=== PATIENT | female | born 1965 | race Caucasian/White ===

== ENCOUNTER 2022-05-26 19:36 | Inpatient (IN) | payer MEDICARE ==
[~2022-05-26 19:36] MED LIST: Iopamidol-370 76% 500 ML 1 ML ONE
[2022-05-26] MEDS ORDERED: Morphine 4 MG/ML VIAL ONE (20:01)
[2022-05-26] MEDS ORDERED: Pantoprazole 40 MG VIAL ONE (20:01)
[2022-05-26 20:37] LABS: #Eosinphils 0.1 thou/uL (0.0-0.7); #Lymphocytes 1.3 thou/uL (1.20-3.40); #Monocytes 0.5 thou/uL (0.11-0.59); #Neutrophils 8.1 thou/uL (1.40-6.50); %Eosinophils 0.7 % (0.0-10.0); %Lymphocytes 13.4 % (21.0-51.0); %Monocytes 5.1 % (0.0-10.0); %Neutrophils 80.8 % (42.0-75.0); Mean Corpuscular HGB CONC 33.7 g/dL (32.0-36.0); Mean Corpuscular Hemoglobin 34.6 pg (27.0-31.0); Mean Platelet Volume 7.3 fL (7.4-10.4); Platelet Count 241 10x3/uL (130-400); RBC Distribution Width 11.6 % (11.5-14.5); Red Blood Cell (RBC) Count 4.62 mill/uL (4.20-5.40)
[2022-05-26 20:51] LABS: ALT (SGPT) 31 U/L (8-55); AST (SGOT) 88 U/L (5-34); Albumin 3.7 g/dL (3.5-5.0); Alkaline Phosphatase 167 U/L (40-110); Anion Gap 15 mmol/L (10-20); BUN (Urea Nitrogen) 15 mg/dL (9.8-20.1); Bilirubin, Total 0.7 mg/dL (0.2-1.2); Calc. Creatinine Clearance 0 mL/min (70-130); Calcium 9.1 mg/dL (7.8-10.44); Carbon Dioxide 27 mmol/L (22-29); Chloride 100 mmol/L (98-107); Estimated GFR 94; Globulin 3.1 g/dL (2.4-3.5); Glucose 97 mg/dL (70-105); Potassium 4.6 mmol/L (3.5-5.1); Protein, Total 6.8 g/dL (6.0-8.3); Sodium 137 mmol/L (136-145)
[2022-05-26 21:04] LABS: Lipase 2475 U/L (8-78)
[2022-05-26] MEDS ORDERED: Ondansetron PF 4 MG/2 ML Vial ONE (22:19)
[2022-05-26] MEDS ORDERED: HYDROmorphone 0.5 MG/0.5 ML SYRINGE ONE (22:20)
[2022-05-26 23:03] LABS: Bilirubin Negative (Negative); Blood, Urine Negative (Negative); Clarity Clear (Clear); Glucose, Urine (Dipstick) Normal (Negative); Ketone, Urine Negative (Negative); Leukocyte Negative Leu/uL (Negative); Nitrite Negative (Negative); Protein, Urine (Dipstick) 10 mg/dL (Neg-Trace); Urobilinogen Normal mg/dL (Less than 2)
[2022-05-26 23:04] LABS: Specific Gravity, Urine Greater than 1.065 (1.002-1.036)
[2022-05-27 00:19] LABS: Hemoglobin A1c 4.6 % (4.0-6.0)
[2022-05-27 00:27] VITALS: BMI 30.3
[2022-05-27] MEDS: Lactated Ringer's 1,000 ML IV SCH ×3 (01:01→16:51)
[2022-05-27] MEDS: Morphine 4 MG/ML VIAL SLOW IVP PRN ×6 (01:06→22:41)
[2022-05-27] MEDS ORDERED: Morphine 2 MG/ML VIAL SLOW IVP SCH (05:45)
[2022-05-27 06:23] LABS: #Lymphocytes 1.1 thou/uL (1.20-3.40); #Monocytes 0.4 thou/uL (0.11-0.59); #Neutrophils 5.8 thou/uL (1.40-6.50); %Basophils 0.2 % (0.0-1.0); %Eosinophils 0.5 % (0.0-10.0); %Monocytes 5.2 % (0.0-10.0); %Neutrophils 79.1 % (42.0-75.0); Hemoglobin 14.3 g/dL (12.0-16.0); Mean Corpuscular HGB CONC 32.8 g/dL (32.0-36.0); Mean Corpuscular Hemoglobin 34.3 pg (27.0-31.0); Mean Platelet Volume 7.1 fL (7.4-10.4); Platelet Count 194 10x3/uL (130-400); RBC Distribution Width 11.7 % (11.5-14.5); Red Blood Cell (RBC) Count 4.18 mill/uL (4.20-5.40); White Blood Cell (WBC) Count 7.3 10x3/uL (4.8-10.8)
[2022-05-27] MEDS: Ondansetron PF 4 MG/2 ML Vial IVP PRN ×2 (06:37→13:03)
[2022-05-27 06:42] LABS: ALT (SGPT) 22 U/L (8-55); AST (SGOT) 59 U/L (5-34); Albumin 3.2 g/dL (3.5-5.0); Alkaline Phosphatase 135 U/L (40-110); Anion Gap 9 mmol/L (10-20); BUN (Urea Nitrogen) 14 mg/dL (9.8-20.1); Bilirubin, Total 1.1 mg/dL (0.2-1.2); Calc. Creatinine Clearance 119 mL/min (70-130); Calcium 8.2 mg/dL (7.8-10.44); Carbon Dioxide 30 mmol/L (22-29); Cardiac Risk 2.4 (Less than 4.5); Chloride 103 mmol/L (98-107); Cholesterol 220 mg/dl (< 200 Desired); Estimated GFR 102; Globulin 2.5 g/dL (2.4-3.5); Glucose 99 mg/dL (70-105); HDL Cholesterol 93 mg/dL (>60 Neg Risk); LDL Cholesterol, Calculated 115 mg/dL; Potassium 4.4 mmol/L (3.5-5.1); Protein, Total 5.7 g/dL (6.0-8.3); Sodium 138 mmol/L (136-145); Triglycerides 58 mg/dL (Less than 150)
[2022-05-27] MEDS ORDERED: Non-Formulary Item 1 EACH (Omeprazole [Omeprazole] 20 MG Capsule.Dr) PO SCH (09:00)
[2022-05-27] MEDS: Bupropion 150 MG XL TAB PO SCH (09:05)
[2022-05-27] MEDS: Thiamine 100 MG TAB PO SCH (09:06)
[2022-05-27] MEDS: Multivitamin W/ Minerals 1 TAB PO SCH (09:06)
[2022-05-27] MEDS: Folic Acid 1 MG TAB PO SCH (09:06)
[2022-05-27] MEDS: Morphine 2 MG/ML VIAL SLOW IVP PRN ×3 (10:23→20:22)
[2022-05-27] MEDS ORDERED: Polyethylene Glycol 3350 17 GM Packet PO SCH (16:15)
[2022-05-27] MEDS: Zolpidem Tartrate 5 MG TAB PO SCH (20:26)
[2022-05-27] MEDS ORDERED: Non-Formulary Item 1 EACH (Zolpidem Tartrate [Zolpidem Tartrate] 10 MG Tablet) PO SCH (21:00)
[2022-05-28] MEDS: Lactated Ringer's 1,000 ML IV SCH ×4 (02:02→20:20)
[2022-05-28] MEDS: Morphine 4 MG/ML VIAL SLOW IVP PRN ×4 (03:59→23:13)
[2022-05-28] MEDS: Morphine 2 MG/ML VIAL SLOW IVP PRN (06:46)
[2022-05-28 07:10] LABS: ALT (SGPT) 16 U/L (8-55); AST (SGOT) 43 U/L (5-34); Albumin 2.8 g/dL (3.5-5.0); Alkaline Phosphatase 114 U/L (40-110); Anion Gap 12 mmol/L (10-20); BUN (Urea Nitrogen) 8 mg/dL (9.8-20.1); Bilirubin, Total 1.1 mg/dL (0.2-1.2); Calc. Creatinine Clearance 130 mL/min (70-130); Calcium 8.4 mg/dL (7.8-10.44); Carbon Dioxide 27 mmol/L (22-29); Chloride 101 mmol/L (98-107); Estimated GFR 104; Globulin 2.4 g/dL (2.4-3.5); Glucose 77 mg/dL (70-105); Potassium 3.8 mmol/L (3.5-5.1); Protein, Total 5.2 g/dL (6.0-8.3); Sodium 136 mmol/L (136-145)
[2022-05-28 07:19] LABS: #Eosinphils 0.1 thou/uL (0.0-0.7); #Lymphocytes 1.4 thou/uL (1.20-3.40); #Monocytes 0.4 thou/uL (0.11-0.59); #Neutrophils 6.3 thou/uL (1.40-6.50); %Basophils 0.4 % (0.0-1.0); %Eosinophils 0.8 % (0.0-10.0); %Lymphocytes 16.8 % (21.0-51.0); %Monocytes 5.1 % (0.0-10.0); %Neutrophils 76.9 % (42.0-75.0); Hemoglobin 12.2 g/dL (12.0-16.0); Mean Corpuscular HGB CONC 33.8 g/dL (32.0-36.0); Mean Corpuscular Hemoglobin 35.3 pg (27.0-31.0); Mean Platelet Volume 7.4 fL (7.4-10.4); Platelet Count 145 10x3/uL (130-400); RBC Distribution Width 11.5 % (11.5-14.5); Red Blood Cell (RBC) Count 3.45 mill/uL (4.20-5.40); White Blood Cell (WBC) Count 8.2 10x3/uL (4.8-10.8)
[2022-05-28] MEDS: Thiamine 100 MG TAB PO SCH (08:45)
[2022-05-28] MEDS: Multivitamin W/ Minerals 1 TAB PO SCH (08:45)
[2022-05-28] MEDS: Bupropion 150 MG XL TAB PO SCH (08:45)
[2022-05-28] MEDS: Folic Acid 1 MG TAB PO SCH (08:45)
[2022-05-28] MEDS: Polyethylene Glycol 3350 17 GM Packet PO SCH (08:45)
[2022-05-28] MEDS: HYDROcodone/Acetaminophen 10/325 mg Tablet PO SCH ×2 (11:42→17:52)
[2022-05-28] MEDS: Zolpidem Tartrate 5 MG TAB PO SCH (23:13)
[2022-05-29] MEDS: HYDROcodone/Acetaminophen 10/325 mg Tablet PO SCH ×5 (00:49→23:54)
[2022-05-29] MEDS: Morphine 2 MG/ML VIAL SLOW IVP PRN (03:21)
[2022-05-29] MEDS: Lactated Ringer's 1,000 ML IV SCH (06:15)
[2022-05-29 07:52] LABS: #Eosinphils 0.1 thou/uL (0.0-0.7); #Lymphocytes 1.4 thou/uL (1.20-3.40); #Monocytes 0.4 thou/uL (0.11-0.59); %Basophils 0.3 % (0.0-1.0); %Eosinophils 1.9 % (0.0-10.0); %Lymphocytes 20.1 % (21.0-51.0); %Monocytes 5.1 % (0.0-10.0); %Neutrophils 72.7 % (42.0-75.0); Hemoglobin 11.4 g/dL (12.0-16.0); Mean Corpuscular HGB CONC 33.1 g/dL (32.0-36.0); Mean Corpuscular Hemoglobin 34.7 pg (27.0-31.0); Mean Platelet Volume 7.3 fL (7.4-10.4); Platelet Count 163 10x3/uL (130-400); RBC Distribution Width 11.2 % (11.5-14.5); Red Blood Cell (RBC) Count 3.28 mill/uL (4.20-5.40); White Blood Cell (WBC) Count 6.9 10x3/uL (4.8-10.8)
[2022-05-29 08:04] LABS: ALT (SGPT) 14 U/L (8-55); AST (SGOT) 33 U/L (5-34); Albumin 3.1 g/dL (3.5-5.0); Alkaline Phosphatase 119 U/L (40-110); Anion Gap 12 mmol/L (10-20); BUN (Urea Nitrogen) 5 mg/dL (9.8-20.1); Calc. Creatinine Clearance 134 mL/min (70-130); Calcium 8.5 mg/dL (7.8-10.44); Carbon Dioxide 27 mmol/L (22-29); Chloride 101 mmol/L (98-107); Estimated GFR 105; Globulin 2.7 g/dL (2.4-3.5); Glucose 66 mg/dL (70-105); Potassium 3.6 mmol/L (3.5-5.1); Protein, Total 5.8 g/dL (6.0-8.3); Sodium 136 mmol/L (136-145)
[2022-05-29] MEDS: Multivitamin W/ Minerals 1 TAB PO SCH (08:25)
[2022-05-29] MEDS: Bupropion 150 MG XL TAB PO SCH (08:25)
[2022-05-29] MEDS: Thiamine 100 MG TAB PO SCH (08:26)
[2022-05-29] MEDS: Folic Acid 1 MG TAB PO SCH (08:26)
[2022-05-29] MEDS: Polyethylene Glycol 3350 17 GM Packet PO SCH (08:29)
[2022-05-29] MEDS: Morphine 4 MG/ML VIAL SLOW IVP PRN ×3 (08:30→20:36)
[2022-05-29] MEDS: Simethicone Chewable 80 MG TAB PO PRN (13:03)
[2022-05-29] MEDS: Gabapentin 300 MG CAP PO SCH (20:34)
[2022-05-29] MEDS: Zolpidem Tartrate 5 MG TAB PO SCH (20:35)
[2022-05-30] MEDS: HYDROcodone/Acetaminophen 10/325 mg Tablet PO SCH ×4 (05:51→23:49)
[2022-05-30 06:32] LABS: #Eosinphils 0.1 thou/uL (0.0-0.7); #Lymphocytes 1.4 thou/uL (1.20-3.40); #Monocytes 0.3 thou/uL (0.11-0.59); #Neutrophils 3.9 thou/uL (1.40-6.50); %Basophils 0.7 % (0.0-1.0); %Eosinophils 1.9 % (0.0-10.0); %Lymphocytes 24.2 % (21.0-51.0); %Monocytes 5.8 % (0.0-10.0); %Neutrophils 67.4 % (42.0-75.0); Hemoglobin 11.3 g/dL (12.0-16.0); Mean Corpuscular HGB CONC 32.6 g/dL (32.0-36.0); Mean Corpuscular Hemoglobin 34.4 pg (27.0-31.0); Mean Platelet Volume 7.3 fL (7.4-10.4); Platelet Count 203 10x3/uL (130-400); RBC Distribution Width 11.3 % (11.5-14.5); Red Blood Cell (RBC) Count 3.28 mill/uL (4.20-5.40); White Blood Cell (WBC) Count 5.7 10x3/uL (4.8-10.8)
[2022-05-30 06:51] LABS: ALT (SGPT) 12 U/L (8-55); AST (SGOT) 31 U/L (5-34); Albumin 3.2 g/dL (3.5-5.0); Alkaline Phosphatase 121 U/L (40-110); Anion Gap 16 mmol/L (10-20); BUN (Urea Nitrogen) Less than 4 mg/dL (9.8-20.1); Bilirubin, Total 0.8 mg/dL (0.2-1.2); Calc. Creatinine Clearance 128 mL/min (70-130); Calcium 8.8 mg/dL (7.8-10.44); Carbon Dioxide 24 mmol/L (22-29); Chloride 101 mmol/L (98-107); Estimated GFR 104; Globulin 2.9 g/dL (2.4-3.5); Glucose 69 mg/dL (70-105); Potassium 3.6 mmol/L (3.5-5.1); Protein, Total 6.1 g/dL (6.0-8.3); Sodium 137 mmol/L (136-145)
[2022-05-30] MEDS: Thiamine 100 MG TAB PO SCH (08:22)
[2022-05-30] MEDS: Bupropion 150 MG XL TAB PO SCH (08:22)
[2022-05-30] MEDS: Polyethylene Glycol 3350 17 GM Packet PO SCH (08:22)
[2022-05-30] MEDS: Folic Acid 1 MG TAB PO SCH (08:22)
[2022-05-30] MEDS: Morphine 4 MG/ML VIAL SLOW IVP PRN ×2 (08:22→16:24)
[2022-05-30] MEDS: Multivitamin W/ Minerals 1 TAB PO SCH (08:22)
[2022-05-30] MEDS: Simethicone Chewable 80 MG TAB PO PRN ×2 (11:31→20:26)
[2022-05-30] MEDS: Zolpidem Tartrate 5 MG TAB PO SCH (20:17)
[2022-05-30] MEDS: Gabapentin 300 MG CAP PO SCH (20:17)
[2022-05-30] MEDS: Ondansetron PF 4 MG/2 ML Vial IVP PRN (20:18)
[2022-05-31] MEDS: HYDROcodone/Acetaminophen 10/325 mg Tablet PO SCH (05:43)
[2022-05-31 07:38] LABS: ALT (SGPT) 11 U/L (8-55); AST (SGOT) 30 U/L (5-34); Albumin 3.1 g/dL (3.5-5.0); Alkaline Phosphatase 145 U/L (40-110); Anion Gap 15 mmol/L (10-20); BUN (Urea Nitrogen) Less than 4 mg/dL (9.8-20.1); Bilirubin, Total 0.7 mg/dL (0.2-1.2); Calc. Creatinine Clearance 130 mL/min (70-130); Calcium 9.3 mg/dL (7.8-10.44); Carbon Dioxide 28 mmol/L (22-29); Chloride 101 mmol/L (98-107); Estimated GFR 104; Globulin 2.9 g/dL (2.4-3.5); Glucose 92 mg/dL (70-105); Potassium 3.1 mmol/L (3.5-5.1); Sodium 141 mmol/L (136-145)
[2022-05-31 07:42] LABS: #Eosinphils 0.1 thou/uL (0.0-0.7); #Lymphocytes 1.2 thou/uL (1.20-3.40); #Monocytes 0.5 thou/uL (0.11-0.59); #Neutrophils 2.8 thou/uL (1.40-6.50); %Basophils 0.5 % (0.0-1.0); %Eosinophils 2.6 % (0.0-10.0); %Lymphocytes 26.8 % (21.0-51.0); %Monocytes 9.9 % (0.0-10.0); %Neutrophils 60.2 % (42.0-75.0); Hemoglobin 11.4 g/dL (12.0-16.0); Mean Corpuscular HGB CONC 32.7 g/dL (32.0-36.0); Mean Corpuscular Hemoglobin 34.4 pg (27.0-31.0); Mean Platelet Volume 7.3 fL (7.4-10.4); Platelet Count 237 10x3/uL (130-400); RBC Distribution Width 11.5 % (11.5-14.5); White Blood Cell (WBC) Count 4.6 10x3/uL (4.8-10.8)
[2022-05-31] MEDS: Simethicone Chewable 80 MG TAB PO PRN (08:03)
[2022-05-31] MEDS: Folic Acid 1 MG TAB PO SCH (08:03)
[2022-05-31] MEDS: Bupropion 150 MG XL TAB PO SCH (08:03)
[2022-05-31] MEDS: Thiamine 100 MG TAB PO SCH (08:03)
[2022-05-31] MEDS: Polyethylene Glycol 3350 17 GM Packet PO SCH (08:04)
[2022-05-31] MEDS: Multivitamin W/ Minerals 1 TAB PO SCH (08:04)
[2022-05-31] MEDS ORDERED: Losartan 25 MG TAB PO SCH (10:00)
[2022-05-31] MEDS ORDERED: Potassium Chloride 20 MEQ TAB PO SCH (10:15)
[2022-05-31] MEDS ORDERED: Ketorolac Tromethamine 30 MG/ML VIAL IVP SCH (10:15)
[2022-05-31] MEDS: Losartan 25 MG TAB PO SCH (11:22)
[2022-05-31] MEDS: HYDROcodone/Acetaminophen 10/325 mg Tablet PO PRN ×2 (12:32→20:16)
[2022-05-31] MEDS: Gabapentin 300 MG CAP PO SCH (20:15)
[2022-05-31] MEDS: Zolpidem Tartrate 5 MG TAB PO SCH (20:16)
[2022-06-01] MEDS: HYDROcodone/Acetaminophen 10/325 mg Tablet PO PRN (03:44)
[2022-06-01 06:44] LABS: #Eosinphils 0.1 thou/uL (0.0-0.7); #Lymphocytes 1.4 thou/uL (1.20-3.40); #Monocytes 0.4 thou/uL (0.11-0.59); #Neutrophils 2.9 thou/uL (1.40-6.50); %Basophils 0.4 % (0.0-1.0); %Eosinophils 2.4 % (0.0-10.0); %Lymphocytes 28.9 % (21.0-51.0); %Monocytes 8.7 % (0.0-10.0); %Neutrophils 59.6 % (42.0-75.0); Hemoglobin 11.7 g/dL (12.0-16.0); Mean Corpuscular HGB CONC 33.1 g/dL (32.0-36.0); Mean Corpuscular Hemoglobin 34.7 pg (27.0-31.0); Platelet Count 282 10x3/uL (130-400); RBC Distribution Width 11.4 % (11.5-14.5); Red Blood Cell (RBC) Count 3.37 mill/uL (4.20-5.40); White Blood Cell (WBC) Count 4.8 10x3/uL (4.8-10.8)
[2022-06-01 07:07] LABS: ALT (SGPT) 9 U/L (8-55); AST (SGOT) 24 U/L (5-34); Albumin 3.3 g/dL (3.5-5.0); Alkaline Phosphatase 141 U/L (40-110); Anion Gap 12 mmol/L (10-20); BUN (Urea Nitrogen) Less than 4 mg/dL (9.8-20.1); Bilirubin, Total 0.6 mg/dL (0.2-1.2); Calc. Creatinine Clearance 122 mL/min (70-130); Calcium 9.2 mg/dL (7.8-10.44); Carbon Dioxide 28 mmol/L (22-29); Chloride 104 mmol/L (98-107); Estimated GFR 103; Globulin 2.9 g/dL (2.4-3.5); Glucose 91 mg/dL (70-105); Protein, Total 6.2 g/dL (6.0-8.3); Sodium 140 mmol/L (136-145)
[2022-06-01] MEDS ORDERED: Ibuprofen 600 MG TAB PO PRN (08:24)
[2022-06-01] MEDS: Polyethylene Glycol 3350 17 GM Packet PO SCH (09:10)
[2022-06-01] MEDS: Losartan 25 MG TAB PO SCH (09:10)
[2022-06-01] MEDS: Folic Acid 1 MG TAB PO SCH (09:11)
[2022-06-01] MEDS: Multivitamin W/ Minerals 1 TAB PO SCH (09:11)
[2022-06-01] MEDS: Thiamine 100 MG TAB PO SCH (09:11)
[2022-06-01] MEDS: Bupropion 150 MG XL TAB PO SCH (09:46)
[2022-06-01 10:46] VITALS: BP 154/91; TEMP 97.7
[2022-06-01] MEDS ORDERED: Acetaminophen 500 MG TAB PO SCH (14:00)
== END 2022-06-01 12:55 | disposition home or self-care (01) | DRG 440 ==
LOC: ERS 19:36 → T4-A 22:21
PROVIDERS: ADMIT Family Medicine; ATTEND Family Medicine
DX: K85.90 Acute pancreatitis without necrosis or infection, unspecified (principal); F41.9 Anxiety disorder, unspecified; F32.A Depression, unspecified; I10 Essential (primary) hypertension; F43.10 Post-traumatic stress disorder, unspecified; F10.10 Alcohol abuse, uncomplicated; K76.0 Fatty (change of) liver, not elsewhere classified; G47.00 Insomnia, unspecified; F41.0 Panic disorder [episodic paroxysmal anxiety]; G25.81 Restless legs syndrome; E87.6 Hypokalemia; Z88.2 Allergy status to sulfonamides; Z79.899 Other long term (current) drug therapy; Z90.710 Acquired absence of both cervix and uterus
CPT/HCPCS: 36415; 74177; 76705; 80053; 80061; 81003; 83036; 83690; 84439; 84443; 84484; 85025; 93005; 96361; 96374; 96375; C9113; J1170; J1885; J2270; J2272; J2405; J7120; Q9967; U0003; U0005

== ENCOUNTER 2023-03-18 17:05 | Inpatient (IN) | payer MEDICARE ==
[~2023-03-18 17:05] MED LIST changes: +Iopamidol 370 76% 100 ML VIAL ONE; -Iopamidol-370 76% 500 ML 1 ML ONE
[2023-03-18] MEDS ORDERED: Thiamine HCl 200 MG/2 ML VIAL ONE (18:04)
[2023-03-18] MEDS ORDERED: Ondansetron PF 4 MG/2 ML Vial ONE (18:04)
[2023-03-18] MEDS ORDERED: Morphine 4 MG/ML VIAL ONE (18:04)
[2023-03-18] MEDS ORDERED: Pantoprazole 40 MG VIAL ONE (18:11)
[2023-03-18 18:57] LABS: #Basophils 0.1 thou/uL (0.0-0.2); #Eosinphils 0.1 thou/uL (0.0-0.7); #Neutrophils 4.1 thou/uL (1.40-6.50); %Basophils 1.4 % (0.0-1.0); %Eosinophils 1.5 % (0.0-10.0); %Lymphocytes 24.5 % (21.0-51.0); %Monocytes 13.3 % (0.0-10.0); %Neutrophils 56.3 % (42.0-75.0); Hematocrit 35.6 % (36.0-47.0); Hemoglobin 12.1 g/dL (12.0-16.0); Mean Corpuscular Hemoglobin 34.8 pg (27.0-31.0); Mean Corpuscular Volume 102.3 fl (78.0-98.0); Mean Platelet Volume 9.9 fL (7.4-10.4); Platelet Count 222 10x3/uL (130-400); RBC Distribution Width 12.5 % (11.5-14.5); Red Blood Cell (RBC) Count 3.48 mill/uL (4.20-5.40); White Blood Cell (WBC) Count 7.2 10x3/uL (4.8-10.8)
[2023-03-18 19:25] LABS: Troponin I Less than 0.010 ng/mL (< 0.028)
[2023-03-18 19:29] LABS: ALT (SGPT) 43 U/L (8-55); AST (SGOT) 81 U/L (5-34); Albumin 3.6 g/dL (3.5-5.0); Alkaline Phosphatase 207 U/L (40-110); Anion Gap 18 mmol/L (10-20); BUN (Urea Nitrogen) 10 mg/dL (9.8-20.1); CK (CPK) 48 U/L (29-168); Calc. Creatinine Clearance 0 mL/min (70-130); Calcium 9.7 mg/dL (7.8-10.44); Carbon Dioxide 27 mmol/L (22-29); Chloride 95 mmol/L (98-107); Estimated GFR 89; Globulin 2.8 g/dL (2.4-3.5); Glucose 107 mg/dL (70-105); Lipase 23 U/L (8-78); Potassium 4.8 mmol/L (3.5-5.1); Protein, Total 6.4 g/dL (6.0-8.3); Sodium 135 mmol/L (136-145)
[2023-03-18 21:12] LABS: Acetaminophen Less than 10 mcg/mL (10.0-30.0); Alcohol Less than 10.0 mg/dL (Less than 10); Salicylate Less than 8.0 mg/dL (15.0-30.0)
[2023-03-18] MEDS ORDERED: Ondansetron PF 4 MG/2 ML Vial IVP PRN ×2 (21:30→23:33)
[2023-03-18] MEDS ORDERED: Ondansetron ODT 4 MG TAB SL PRN (21:30)
[2023-03-18] MEDS ORDERED: Acetaminophen 325 MG TAB PO PRN (23:33)
[2023-03-18] MEDS ORDERED: Ondansetron ODT 4 MG TAB PO PRN (23:33)
[2023-03-18] MEDS ORDERED: Acetaminophen 650 MG Suppository PR PRN (23:33)
[2023-03-18] MEDS ORDERED: Lorazepam 2 MG/ML VIAL IM PRN (23:34)
[2023-03-18] MEDS ORDERED: Lorazepam 1 MG TAB PO PRN (23:34)
[2023-03-18] MEDS ORDERED: Electrolyte Replacement Protocol 1 EACH FS SCH (23:45)
[2023-03-18] MEDS ORDERED: Multivit, Therapeutic 1 TAB PO SCH (23:59)
[2023-03-18] MEDS ORDERED: Folic Acid 1 MG TAB PO SCH (23:59)
[2023-03-19] MEDS: Morphine 4 MG/ML VIAL SLOW IVP PRN ×5 (00:04→22:43)
[2023-03-19 00:29] VITALS: BMI 35.2
[2023-03-19 06:07] LABS: #Eosinphils 0.1 thou/uL (0.0-0.7); #Monocytes 0.6 thou/uL (0.11-0.59); #Neutrophils 2.4 thou/uL (1.40-6.50); %Basophils 0.9 % (0.0-1.0); %Eosinophils 2.8 % (0.0-10.0); %Lymphocytes 29.1 % (21.0-51.0); %Monocytes 12.8 % (0.0-10.0); %Neutrophils 49.9 % (42.0-75.0); Hematocrit 30.1 % (36.0-47.0); Hemoglobin 9.9 g/dL (12.0-16.0); Mean Corpuscular HGB CONC 32.9 g/dL (32.0-36.0); Mean Corpuscular Hemoglobin 35.1 pg (27.0-31.0); Mean Platelet Volume 9.3 fL (7.4-10.4); Platelet Count 173 10x3/uL (130-400); RBC Distribution Width 12.5 % (11.5-14.5); Red Blood Cell (RBC) Count 2.82 mill/uL (4.20-5.40); White Blood Cell (WBC) Count 4.7 10x3/uL (4.8-10.8)
[2023-03-19] MEDS: D5 1/2 NS w/20 mEq KCL 1,000 ML IV SCH ×2 (06:17)
[2023-03-19 06:47] LABS: ALT (SGPT) 33 U/L (8-55); AST (SGOT) 49 U/L (5-34); Albumin 2.8 g/dL (3.5-5.0); Alkaline Phosphatase 147 U/L (40-110); Anion Gap 15 mmol/L (10-20); BUN (Urea Nitrogen) 12 mg/dL (9.8-20.1); Bilirubin, Total 0.7 mg/dL (0.2-1.2); Calc. Creatinine Clearance 65 mL/min (70-130); Calcium 8.5 mg/dL (7.8-10.44); Carbon Dioxide 25 mmol/L (22-29); Chloride 100 mmol/L (98-107); Estimated GFR 44; Globulin 2.5 g/dL (2.4-3.5); Glucose 82 mg/dL (70-105); Protein, Total 5.3 g/dL (6.0-8.3); Sodium 136 mmol/L (136-145)
[2023-03-19 06:49] LABS: Mean Corpuscular Volume 106.7 fl (78.0-98.0)
[2023-03-19] MEDS ORDERED: FLU VACC QS2023-24(6MOS UP)/PF 60 MCG/0.5 ML SYRINGE IM ONE (09:00)
[2023-03-19] MEDS: Famotidine 20 MG TAB PO SCH ×2 (09:01→22:44)
[2023-03-19] MEDS: Multivit, Therapeutic 1 TAB PO SCH (09:02)
[2023-03-19] MEDS: Folic Acid 1 MG TAB PO SCH (09:02)
[2023-03-19] MEDS: Famotidine/PF 20 mg/2ml Vial SLOW IVP SCH ×2 (09:03→20:54)
[2023-03-19] MEDS: Losartan 25 MG TAB PO SCH (09:04)
[2023-03-19] MEDS: Gabapentin 300 MG CAP PO SCH ×2 (14:53→20:55)
[2023-03-19] MEDS: HYDROcodone/Acetaminophen 5/325 mg Tablet PO PRN ×2 (14:55→21:04)
[2023-03-19] MEDS: Thiamine HCl 200 MG/2 ML VIAL SLOW IVP SCH (20:54)
[2023-03-19] MEDS ORDERED: Lorazepam 1 MG TAB PO PRN (23:34)
[2023-03-20 04:45] LABS: #Basophils 0.1 thou/uL (0.0-0.2); #Eosinphils 0.1 thou/uL (0.0-0.7); #Monocytes 0.7 thou/uL (0.11-0.59); #Neutrophils 3.5 thou/uL (1.40-6.50); %Basophils 0.8 % (0.0-1.0); %Lymphocytes 23.8 % (21.0-51.0); %Monocytes 10.8 % (0.0-10.0); %Neutrophils 58.6 % (42.0-75.0); Hematocrit 35.2 % (36.0-47.0); Hemoglobin 11.3 g/dL (12.0-16.0); Mean Corpuscular HGB CONC 32.1 g/dL (32.0-36.0); Mean Corpuscular Hemoglobin 34.3 pg (27.0-31.0); Mean Platelet Volume 9.2 fL (7.4-10.4); Platelet Count 206 10x3/uL (130-400); RBC Distribution Width 12.7 % (11.5-14.5); Red Blood Cell (RBC) Count 3.29 mill/uL (4.20-5.40)
[2023-03-20] MEDS: Morphine 4 MG/ML VIAL SLOW IVP PRN (04:46)
[2023-03-20 05:12] LABS: ALT (SGPT) 35 U/L (8-55); AST (SGOT) 42 U/L (5-34); Alkaline Phosphatase 165 U/L (40-110); Anion Gap 17 mmol/L (10-20); BUN (Urea Nitrogen) 12 mg/dL (9.8-20.1); Bilirubin, Total 0.8 mg/dL (0.2-1.2); CRP (Inflammatory) 9.26 mg/dL (= or < 0.5); Calc. Creatinine Clearance 65 mL/min (70-130); Calcium 9.1 mg/dL (7.8-10.44); Carbon Dioxide 23 mmol/L (22-29); Chloride 99 mmol/L (98-107); Estimated GFR 44; Globulin 2.9 g/dL (2.4-3.5); Glucose 102 mg/dL (70-105); Magnesium 1.4 mg/dL (1.6-2.6); Potassium 4.5 mmol/L (3.5-5.1); Protein, Total 5.9 g/dL (6.0-8.3); Sodium 134 mmol/L (136-145)
[2023-03-20] MEDS ORDERED: Magnesium Sulfate In Water 4 GM in Premix 1 BAG IVPB SCH (06:00)
[2023-03-20] MEDS ORDERED: Polyethylene Glycol 3350 17 GM Packet PO PRN (06:38)
[2023-03-20] MEDS: HYDROcodone/Acetaminophen 5/325 mg Tablet PO PRN ×4 (06:51→20:33)
[2023-03-20] MEDS: Multivit, Therapeutic 1 TAB PO SCH (09:29)
[2023-03-20] MEDS: Famotidine 20 MG TAB PO SCH (09:29)
[2023-03-20] MEDS: Gabapentin 300 MG CAP PO SCH ×3 (09:29→20:28)
[2023-03-20] MEDS: Folic Acid 1 MG TAB PO SCH (09:29)
[2023-03-20] MEDS: Famotidine/PF 20 mg/2ml Vial SLOW IVP SCH (09:32)
[2023-03-20] MEDS: Losartan 25 MG TAB PO SCH (09:33)
[2023-03-20] MEDS: Sodium Chloride 0.9% 1,000 ML IV SCH ×3 (10:27→20:30)
[2023-03-20] MEDS ORDERED: HYDROcodone/Acetaminophen 7.5/325 mg Tablet PO PRN (16:47)
[2023-03-20] MEDS: Morphine 2 MG/ML VIAL SLOW IVP PRN (18:17)
[2023-03-20] MEDS: Thiamine HCl 200 MG/2 ML VIAL SLOW IVP SCH (20:28)
[2023-03-20] MEDS ORDERED: Lorazepam 1 MG TAB PO PRN (23:34)
[2023-03-21] MEDS: Sodium Chloride 0.9% 1,000 ML IV SCH ×3 (04:30→16:38)
[2023-03-21] MEDS: Morphine 2 MG/ML VIAL SLOW IVP PRN (06:34)
[2023-03-21] MEDS: Gabapentin 300 MG CAP PO SCH ×3 (09:09→20:45)
[2023-03-21] MEDS: Folic Acid 1 MG TAB PO SCH (09:09)
[2023-03-21] MEDS: Famotidine/PF 20 mg/2ml Vial SLOW IVP SCH (09:10)
[2023-03-21] MEDS: Multivit, Therapeutic 1 TAB PO SCH (09:10)
[2023-03-21] MEDS: Losartan 25 MG TAB PO SCH (09:10)
[2023-03-21] MEDS: HYDROcodone/Acetaminophen 5/325 mg Tablet PO PRN ×3 (09:11→20:45)
[2023-03-21] MEDS ORDERED: BuPROPion XL 150 MG ER.TAB PO SCH (10:40)
[2023-03-21] MEDS: Famotidine 20 MG TAB PO SCH (12:59)
[2023-03-21] MEDS ORDERED: Thiamine 100 MG TAB PO SCH (21:00)
[2023-03-21] MEDS ORDERED: Lorazepam 0.5 MG TAB PO PRN (23:34)
[2023-03-22] MEDS: HYDROcodone/Acetaminophen 5/325 mg Tablet PO PRN (05:45)
[2023-03-22] MEDS: Sodium Chloride 0.9% 1,000 ML IV SCH ×2 (05:46→08:41)
[2023-03-22] MEDS: Multivit, Therapeutic 1 TAB PO SCH (08:39)
[2023-03-22] MEDS: Famotidine 20 MG TAB PO SCH (08:39)
[2023-03-22] MEDS: Folic Acid 1 MG TAB PO SCH (08:39)
[2023-03-22] MEDS: Gabapentin 300 MG CAP PO SCH (08:39)
[2023-03-22] MEDS: Losartan 25 MG TAB PO SCH (08:40)
[2023-03-22] MEDS: Famotidine/PF 20 mg/2ml Vial SLOW IVP SCH (08:40)
[2023-03-22 08:55] VITALS: BP 111/75; TEMP 97.7
[2023-03-22] MEDS ORDERED: BuPROPion XL 150 MG ER.TAB PO SCH (09:00)
== END 2023-03-22 15:39 | disposition home or self-care (01) | DRG 439 ==
LOC: ERS 17:05 → MSONC 21:11
PROVIDERS: ADMIT Student in an Organized Health Care Education/Training Program; ATTEND Family Medicine
DX: K85.20 Alcohol induced acute pancreatitis without necrosis or infection (principal); N17.9 Acute kidney failure, unspecified; I10 Essential (primary) hypertension; F41.9 Anxiety disorder, unspecified; F32.A Depression, unspecified; F43.10 Post-traumatic stress disorder, unspecified; K76.0 Fatty (change of) liver, not elsewhere classified; K70.9 Alcoholic liver disease, unspecified; F10.10 Alcohol abuse, uncomplicated; Z90.710 Acquired absence of both cervix and uterus; Z98.891 History of uterine scar from previous surgery; Z79.899 Other long term (current) drug therapy; Z79.2 Long term (current) use of antibiotics; Z88.2 Allergy status to sulfonamides; K86.0 Alcohol-induced chronic pancreatitis
CPT/HCPCS: 36415; 74177; 76705; 80053; 80307; 82550; 83690; 83735; 84484; 85025; 86140; 93005; 96365; 96375; C9113; J2270; J2272; J2405; J3411; J3475; J3480; J7050; Q9967; S0028

== ENCOUNTER 2023-05-28 14:13 | Inpatient (IN) | payer MEDICARE, OTHER ==
[2023-05-28 15:32] LABS: #Basophils 0.1 thou/uL (0.0-0.2); #Monocytes 0.4 thou/uL (0.11-0.59); #Neutrophils 3.8 thou/uL (1.40-6.50); %Basophils 0.9 % (0.0-1.0); %Eosinophils 0.5 % (0.0-10.0); %Lymphocytes 22.2 % (21.0-51.0); %Monocytes 6.8 % (0.0-10.0); %Neutrophils 69.2 % (42.0-75.0); Hematocrit 33.3 % (36.0-47.0); Hemoglobin 11.2 g/dL (12.0-16.0); Mean Corpuscular HGB CONC 33.6 g/dL (32.0-36.0); Mean Corpuscular Hemoglobin 33.6 pg (27.0-31.0); Mean Platelet Volume 9.2 fL (7.4-10.4); Platelet Count 222 10x3/uL (130-400); RBC Distribution Width 13.4 % (11.5-14.5); Red Blood Cell (RBC) Count 3.33 mill/uL (4.20-5.40); White Blood Cell (WBC) Count 5.5 10x3/uL (4.8-10.8)
[2023-05-28 15:50] LABS: ALT (SGPT) 47 U/L (8-55); AST (SGOT) 130 U/L (5-34); Albumin 3.4 g/dL (3.5-5.0); Alcohol Less than 10.0 mg/dL (Less than 10); Alkaline Phosphatase 122 U/L (40-110); Anion Gap 15 mmol/L (10-20); BUN (Urea Nitrogen) 19 mg/dL (9.8-20.1); Bilirubin, Total 1.1 mg/dL (0.2-1.2); Calc. Creatinine Clearance 0 mL/min (70-130); Calcium 8.6 mg/dL (7.8-10.44); Carbon Dioxide 24 mmol/L (22-29); Chloride 98 mmol/L (98-107); Estimated GFR 78; Globulin 2.4 g/dL (2.4-3.5); Glucose 107 mg/dL (70-105); Lipase 7 U/L (8-78); Phosphorus 3.1 mg/dL (2.3-4.7); Potassium 3.4 mmol/L (3.5-5.1); Protein, Total 5.8 g/dL (6.0-8.3); Sodium 134 mmol/L (136-145)
[2023-05-28 15:52] LABS: Acetaminophen Less than 10 mcg/mL (10.0-30.0); Alcohol Less than 10.0 mg/dL (Less than 10); Magnesium 1.5 mg/dL (1.6-2.6); Salicylate Less than 8.0 mg/dL (15.0-30.0)
[2023-05-28 15:54] LABS: Troponin I Less than 0.010 ng/mL (< 0.028)
[2023-05-28] MEDS ORDERED: Magnesium 2 GM/50 ML BAG (IN WATER) ONE (16:14)
[2023-05-28] MEDS ORDERED: chlordiazePOXIDE HCl 25 MG CAP ONE (16:14)
[2023-05-28] MEDS ORDERED: Ondansetron PF 4 MG/2 ML Vial IVP PRN (16:48)
[2023-05-28] MEDS ORDERED: Calcium Carbonate 500 MG ChewTAB PO PRN (16:48)
[2023-05-28] MEDS ORDERED: Lorazepam 1 MG TAB PO PRN (16:48)
[2023-05-28] MEDS ORDERED: Mag-Al Plus 1200/1200/120 MG (30 mL) UDCUP PO PRN (16:51)
[2023-05-28] MEDS ORDERED: LORazepam 2 MG/ML SYR.(CARPUJECT) ONE (16:57)
[2023-05-28] MEDS ORDERED: Lorazepam 2 MG/ML VIAL SLOW IVP PRN (17:00)
[2023-05-28] MEDS ORDERED: Acetaminophen 500 MG TAB ONE (17:00)
[2023-05-28] MEDS ORDERED: Electrolyte Replacement Protocol 1 EACH FS SCH (17:00)
[2023-05-28] MEDS ORDERED: Loperamide HCl 2 MG CAP PO PRN (17:16)
[2023-05-28 18:21] LABS: Bacteria/HPF None Seen HPF (None Seen); Bilirubin Negative (Negative); Blood, Urine Negative (Negative); CAUTI Indications for Culture Alt mental st,lethar; Clarity Clear (Clear); Glucose, Urine (Dipstick) Normal (Negative); Ketone, Urine 40 mg/dL (Negative); Leukocyte Negative Leu/uL (Negative); Nitrite Negative (Negative); Protein, Urine (Dipstick) 20 mg/dL (Neg-Trace); RBC/HPF 0-3 HPF (0-3); Squamous Epithelial 0-3 HPF (0-3); Urobilinogen Normal mg/dL (Less than 2); WBC/HPF 0-3 HPF (0-3); pH, Urine 5.5 (5.0-9.0)
[2023-05-28 18:22] LABS: Specific Gravity, Urine Greater than 1.060 (1.002-1.036)
[2023-05-28 18:24] LABS: Urine Culture Reflex No No
[2023-05-28 18:26] LABS: Amphetamine Detected (NotDetected); Barbiturates Screen Not Detected (NotDetected); Benzodiazepine Screen Detected (NotDetected); Cocaine Metabolite Screen Not Detected (NotDetected); Methadone Detected (NotDetected); Methamphetamine Not Detected (NotDetected); Opiate Screen Not Detected (NotDetected); Oxycodone Screen Not Detected (NotDetected); Phencyclidine (PCP) Not Detected (NotDetected); THC/Cannabinoid Screen Not Detected (NotDetected); Tricyclic Screen Detected (NotDetected)
[2023-05-28 18:29] LABS: Lactic Acid 2.6 mmol/L (0.5-2.2)
[2023-05-28 20:31] VITALS: BMI 30.9
[2023-05-28] MEDS: Multivitamins, Adult 10 ML, Thiamine HCl 100 MG, Folic Acid 1 MG in Dextrose 5 %-0.45 %... IV SCH (20:56)
[2023-05-28] MEDS: Lorazepam 1 MG TAB PO SCH (21:00)
[2023-05-28] MEDS: Gabapentin 300 MG CAP PO SCH (22:46)
[2023-05-28] MEDS: Thiamine HCl 200 MG/2 ML VIAL SLOW IVP SCH (22:51)
[2023-05-28] MEDS: Pantoprazole 40 MG VIAL IVP SCH (22:51)
[2023-05-28] MEDS: Folic Acid 1 MG TAB PO SCH (22:51)
[2023-05-28] MEDS: Multivit, Therapeutic 1 TAB PO SCH (22:51)
[2023-05-28] MEDS: Sodium Chloride 0.9% 500 ML IV SCH (22:52)
[2023-05-28] MEDS: Sodium Chloride 0.9% 1,000 ML IV SCH (23:38)
[2023-05-29] MEDS: Potassium Chloride 20 MEQ in Premix 1 BAG IVPB SCH (00:24)
[2023-05-29 01:18] LABS: SARS-CoV-2 E Target Negative; SARS-CoV-2 N2 Target Negative; SARS-CoV-2 NAA Rapid Test Not Detected (NotDetected); SARS-CoV-2 RdRP gene Negative
[2023-05-29 04:12] LABS: #Eosinphils 0.1 thou/uL (0.0-0.7); #Monocytes 0.5 thou/uL (0.11-0.59); #Neutrophils 2.4 thou/uL (1.40-6.50); %Basophils 0.8 % (0.0-1.0); %Eosinophils 2.7 % (0.0-10.0); %Lymphocytes 42.3 % (21.0-51.0); %Monocytes 8.6 % (0.0-10.0); %Neutrophils 45.4 % (42.0-75.0); Hematocrit 30.3 % (36.0-47.0); Hemoglobin 10.1 g/dL (12.0-16.0); Mean Corpuscular HGB CONC 33.3 g/dL (32.0-36.0); Mean Platelet Volume 9.6 fL (7.4-10.4); Platelet Count 196 10x3/uL (130-400); RBC Distribution Width 13.9 % (11.5-14.5); Red Blood Cell (RBC) Count 3.06 mill/uL (4.20-5.40); White Blood Cell (WBC) Count 5.2 10x3/uL (4.8-10.8)
[2023-05-29 04:43] LABS: Phosphorus 3.6 mg/dL (2.3-4.7)
[2023-05-29 04:48] LABS: ALT (SGPT) 38 U/L (8-55); AST (SGOT) 104 U/L (5-34); Albumin 3.1 g/dL (3.5-5.0); Alkaline Phosphatase 111 U/L (40-110); Anion Gap 14 mmol/L (10-20); BUN (Urea Nitrogen) 17 mg/dL (9.8-20.1); Bilirubin, Direct 0.6 mg/dL (0.1-0.3); Calc. Creatinine Clearance 100 mL/min (70-130); Calcium 8.3 mg/dL (7.8-10.44); Carbon Dioxide 23 mmol/L (22-29); Chloride 104 mmol/L (98-107); Estimated GFR 85; Glucose 90 mg/dL (70-105); Lipase 6 U/L (8-78); Magnesium 2.3 mg/dL (1.6-2.6); Protein, Total 5.1 g/dL (6.0-8.3); Sodium 137 mmol/L (136-145)
[2023-05-29] MEDS: Folic Acid 1 MG TAB PO SCH (09:51)
[2023-05-29] MEDS: BuPROPion XL 150 MG ER.TAB PO SCH (09:51)
[2023-05-29] MEDS: Losartan 25 MG TAB PO SCH (09:51)
[2023-05-29] MEDS: Pantoprazole 40 MG VIAL IVP SCH (09:52)
[2023-05-29] MEDS: Multivit, Therapeutic 1 TAB PO SCH (09:52)
[2023-05-29] MEDS: Enoxaparin 40 MG (0.4 mL) SYRINGE SC SCH (09:52)
[2023-05-29] MEDS: FLU VACC QS2023-24(6MOS UP)/PF 60 MCG/0.5 ML SYRINGE IM ONE (09:53)
[2023-05-29] MEDS ORDERED: Lorazepam 1 MG TAB PO PRN (16:48)
[2023-05-29] MEDS: ALPRAZolam 0.5 MG TAB PO PRN (20:47)
[2023-05-29] MEDS: Zolpidem Tartrate 5 MG TAB PO PRN (20:47)
[2023-05-30] MEDS: Acetaminophen 325 MG TAB PO PRN (09:09)
[2023-05-30 11:10] VITALS: BP 106/63; TEMP 98.5
[2023-05-30] MEDS ORDERED: Lorazepam 1 MG TAB PO PRN (16:48)
[2023-05-30] MEDS ORDERED: Lorazepam 0.5 MG TAB PO SCH (18:00)
[2023-05-31] MEDS ORDERED: Lorazepam 0.5 MG TAB PO PRN (16:48)
[2023-05-31] MEDS ORDERED: Thiamine 100 MG TAB PO SCH (18:00)
== END 2023-05-30 11:30 | disposition home or self-care (01) | DRG 897 ==
LOC: SUATTDRO 14:13 → ERS 14:13 → 2SE 16:47 → OBSVTOIN 16:47
PROVIDERS: ADMIT Internal Medicine; ATTEND Internal Medicine
PROC: HZ2ZZZZ Detoxification Services for Substance Abuse Treatment (ICD-10-PCS; principal; 2023-05-28)
DX: F10.239 Alcohol dependence with withdrawal, unspecified (principal); I10 Essential (primary) hypertension; F41.9 Anxiety disorder, unspecified; D63.8 Anemia in other chronic diseases classified elsewhere; Z88.1 Allergy status to other antibiotic agents; Z88.2 Allergy status to sulfonamides; F32.A Depression, unspecified; Z79.899 Other long term (current) drug therapy
CPT/HCPCS: 36415; 70450; 71045; 74177; 80053; 80306; 80307; 81001; 82248; 83605; 83690; 83735; 84100; 84443; 84484; 85025; 90471; 90686; 93005; C9113; G0008; J1650; J2060; J3411; J3475; J3480; J7030; J7042; J7050; U0002